=== PATIENT | male | born 1990 | race Caucasian/White ===

== ENCOUNTER 2017-11-15 23:34 | Emergency (ER) | payer SELFPAY ==
[~2017-11-15] VITALS: Ht 177.8 cm; Wt 85.4 kg
[2017-11-15 23:38] VITALS: BP 166/109; PULSE 55; RESP 20; TEMP 98.2; O2SAT 98
[2017-11-16] MEDS ORDERED: IBUP1TAB7 PO (02:00)
[2017-11-16] MEDS ORDERED: AMOX500T PO (02:00)
[2017-11-16] MEDS ORDERED: IBUPROFEN 800 MG TAB PO ONE (02:00)
--- NOTE | 2017-11-16 02:00 | PD ---
HPI Chief Complaint: Oral / Dental Pain or Problem Time Seen by Provider: 01:50 Travel History International Travel<30 days: No Contact w/Intl Traveler<30days: No Traveled to known affect area: No History of Present Illness HPI The patient is a 27-year-old male that complains of pain in tooth #32 for 2 days. Is not yet have a dental appointment but he has had teeth extracted in the past. He denies any fever. He has no insurance and will need amoxicillin 500 mg to be free antibiotics at [facility] [place]. [facility] Past Medical History Influenza Vaccination: No Social History Alcohol Use: No Tobacco Use: No Substance Use: No Allergies-Medications (Allergen,Severity, Reaction): Coded Allergies: No Known Allergies (Unverified Adverse Reaction, Unknown, 11/15/17) Reported Meds & Prescriptions Reported Meds & Active Scripts Active No Active Prescriptions or Reported Medications Review of Systems Except as stated in HPI: all other systems reviewed are Neg Physical Exam Narrative GENERAL: The patient is alert, oriented 3 and slight apparent distress with his dental pain. His vital signs show blood pressure 166/109 and heart rate of 55 but are otherwise normal. SKIN: Focused skin assessment warm/dry. HEAD: Atraumatic. Normocephalic. EYES: Pupils equal and round. No scleral icterus. No injection or drainage. ENT: No nasal bleeding or discharge. Mucous membranes pink and moist. NECK: Trachea midline. No JVD. CARDIOVASCULAR: Regular rate and rhythm. No murmur appreciated. RESPIRATORY: No accessory muscle use. Clear to auscultation. Breath sounds equal bilaterally. GASTROINTESTINAL: Abdomen soft, non-tender, nondistended. Hepatic and splenic margins not palpable. MUSCULOSKELETAL: No obvious deformities. No clubbing. No cyanosis. No edema. NEUROLOGICAL: Awake and alert. No obvious cranial nerve deficits. Motor grossly within normal limits. Normal speech. PSYCHIATRIC: Appropriate mood and affect; insight and judgment normal. DENTAL: No loose or chipped teeth. No malocclusion. There is gingival swelling around tooth #32, no drainable abscess is seen. It is very tender over this particular tooth. Data Data Last Documented VS Vital Signs Date Time Temp Pulse Resp B/P (MAP) Pulse Ox O2 Delivery O2 Flow Rate FiO2 11/15/17 23:38 98.2 55 20 166/109 (128) 98 MDM Medical Decision Making Medical Screen Exam Complete: Yes Emergency Medical Condition: Yes Medical Record Reviewed: Yes Differential Diagnosis Dental infection, drainable dental abscess, Efrem's angina-extremely unlikely, gingivitis Narrative Course The patient has dental infection on tooth #32. There is no drainable abscess present. He will be given amoxicillin 500 mg 3 times daily and follow-up with a dentist. He is also given Motrin 800 mg 3 times daily. Med/Other Pt SpecificInfo: Prescription(s) given Scripts Ibuprofen (Ibuprofen) 800 Mg Tab 800 MG PO TID, #33 TAB 0 Refills Prov: Pola Jesus MD 11/16/17 Amoxicillin (Amoxicillin) 500 Mg Tab 500 MG PO TID for Infection, #30 TAB 0 Refills Prov: Pola Jesus MD 11/16/17 Disposition: 01 DISCHARGE HOME Condition: Stable Pola Jesus MD Nov 16, 2017 02:00
[2017-11-16] MEDS ORDERED: AMOXICILLIN 875 MG TAB PO ONE (02:15)
== END 2017-11-16 02:22 | disposition home or self-care (01) ==
LOC: PHED 23:34
DX: K04.7 Periapical abscess without sinus (principal)
CPT/HCPCS: 99283